=== PATIENT | male | born 1950 | race Caucasian/White ===

== ENCOUNTER → 2016-11-24 | Day surgery (SDC) | payer MEDICARE, BC ==
[~2016-11-24] MED LIST: ACETAMINOPHEN/HYDROcodone 325 MG/5 MG TAB ONE; BACITRACIN IM FOR SOLN 50,000 UNIT VIAL ONE; BUPIVACAINE HCL PF 0.25% 30 ML VIAL ONE; BUPIVACAINE/EPINEPHRINE 0.25% PF 30 ML VIAL ONE; GENTAMICIN SULFATE 80 MG/2 ML VIAL ONE; KETOROLAC TROMETHAMINE 30 MG/ML (IVP) VIAL IV PUSH ONE; LACTATED RINGER'S 1000 ML INJ 1,000 ML ONE; MIDAZOLAM HCL 2 MG/2 ML VIAL ONE; MORPHINE SULFATE 4 MG/ML INJ ONE; ONDANSETRON HCL 4 MG/2 ML VIAL IV PUSH ONE; PROPOFOL 200 MG/20 ML AMP IV ONE; SODIUM CHLOR 0.9% 250 ML INJ 250 ML IV ONE; SODIUM CHLORIDE 0.9% INJ 10 ML ONE; VANCOMYCIN HCL 1000 MG VIAL ONE; ceFAZolin 2 GM PREMIX 50 ML ONE; ceFAZolin INJ 1,000 MG VIAL ONE
--- NOTE | 2016-11-24 09:07 | TN ---
cc: CHRISTIANO ANEGL M.D. DATE OF SURGERY: November 24, 2016 PREOPERATIVE DIAGNOSIS Left knee medial compartment severe osteoarthritis, genu varus deformity; chondromalacia patella. POSTOPERATIVE DIAGNOSIS Left knee medial compartment severe osteoarthritis, genu varus deformity; chondromalacia patella. PROCEDURE Left knee medial unicondylar arthroplasty, partial patellectomy. SURGEON Saskia Angel MD MANAGEMENT ASSISTANT Ai Angel MD, Maeve Cooper, PAC SPECIMEN None. ESTIMATED BLOOD LOSS Minimum. COMPLICATIONS None. ANESTHESIA General. DRAIN One. TOURNIQUET TIME 44 minutes at 250 mmHg. CONDITION Stable. PLAN OF ACTIVITY Per orders. PROCEDURE My assistant grocery Chance Angel MD was present for the entire surgical case. He was medically necessary for the entire case because of the complexity of the case and to facilitate the performance of the procedure. The [employer] [place] at the back table was not a skill set for this case to manipulate the instruments, e.g., the multiple different types of soft tissue retractors, trial implants, permanent implants including bone cement. The patient was brought in the operating room and had satisfactory general endotracheal anesthesia by Dr. Richard Shaw, the Department of Anesthesia. Left lower extremity was prepped and draped in the usual sterile manner. The extremity was exsanguinated by Lon wrap, tourniquet was inflated to 250 mmHg. Small anteromedial exposure of the knee was made. All bleeders were coagulated. Dissection was carried through skin and subcutaneous tissue. Paramedian capsulotomy was performed. Patient was found to have severe osteophytes of medial compartment and chondromalacia of medial facette of the patella. Partial patellectomy we used the oscillating saw and removed the medial side of the patella. A guide was used from the [employer] unicondylar arthroplasty system. This was on the distal femur. Approximately 7-8 mm of the posterior condyle, medial femoral condyle was removed using oscillating saw. A bur was then used to prepare the proximal tibia. This was to prepare #2 6.5 mm tibial component and in the distal femur was prepared in order to accept a #2 left medial femoral component. Trial reduction was made in both flexion/extension, medial femoral osteophytes were removed. The patient was found to have a satisfactory balance of the knee in both flexion and extension. All trial components were removed. Preparation for cementing was made. One package of high viscosity bone cement was used. First the tibial component was cemented which is a #2 6.5 mm tibial component followed by the femoral component which is a #2 left medial femoral component. All excess bone cement was removed. The bone cement was allowed to harden for 12 minutes. The wound was irrigated with copious amounts of sterile saline antibiotic solution. The knee was injected with 50 ccs of 0.25% Marcaine with epinephrine. The tourniquet was deflated. All bleeders coagulated. The wound was closed with eighth inch Hemovac drain. The capsule was repaired using multiple interrupted #2 Tycron suture, subcutaneous tissues were closed in layers with 2-0 Vicryl and skin was approximated with running subcuticular 3-0 Vicryl with Benzoin and Steri-Strips. Sterile dressing was applied. The patient tolerated the procedure well and arrived in the recovery room in stable and satisfactory condition. MD VICKI Little/LIBRA /8:31 AM /8:40 AM EDUARD
== END | disposition home or self-care (01) ==
LOC: ESDC 06:04
PROVIDERS: ATTEND Orthopaedic Surgery Orthopaedic Surgery of the Spine
DX: M17.32 Unilateral post-traumatic osteoarthritis, left knee (principal); M21.162 Varus deformity, not elsewhere classified, left knee; M22.42 Chondromalacia patellae, left knee
CPT/HCPCS: C1776; J0690; J1580; J1885; J2250; J2270; J2405; J3010; J3370; J7050; J7120